=== PATIENT | female | born 1995 | race Caucasian/White ===

== ENCOUNTER 2023-05-18 10:32 | Emergency (ER) | payer BC ==
[~2023-05-18] VITALS: Ht 170.2 cm; Wt 140.9 kg
[~2023-05-18 10:32] MED LIST: CEFTIN 250250 MG/TAB PO; PREDNISONE20 MG PO; PROAIR HFA0.09 MG/AC IH; XOPENEX HF0.045 MG/A IH; ZITHROMAX 250M250 MG PO
[2023-05-18 10:54] LABS: HEMATOCRIT 42.1 % (37.0-47.0); HEMOGLOBIN 13.7 g/dl (12.5-16.0); MEAN CELL VOLUME 86 fl (80.0-100.0); MEAN CORPUSCULAR HEMOGLOBIN 28 pg (27-31); MEAN CORPUSCULAR HGB CONC 33 g/dl (33.0-37.0); MEAN PLATELET VOLUME 9.4 fl (7.4-10.4); PLATELET COUNT 270 K/mm3 (130-400); RED BLOOD COUNT 4.92 M/mm3 (4.10-5.30); REDCELL DISTRIBUTION WIDTH-CV 12.9 % (11.5-14.5)
[2023-05-18 11:09] LABS: ALBUMIN 3.3 gm/dL (3.5-5.0); BILIRUBIN,TOTAL 0.5 mg/dL (0.2-1.2); CALCIUM 9.3 mg/dL (8.4-10.2); CREATININE, serum 0.8 mg/dL (0.57-1.11); POTASSIUM 3.8 mmol/L (3.5-4.5); TOTAL PROTEIN 7.4 gm/dL (6.2-8.1)
[2023-05-18 11:16] LABS: BAND 3 % (0-10); NEUTROPHILS 88 % (42.0-75.2)
[2023-05-18 11:17] LABS: HYPOCHROMIA 1+; PLATELET ESTIMATE NORMAL (NORMAL)
[2023-05-18 11:18] LABS: LYMPHOCYTE 6 % (20.0-51.0)
[2023-05-18 12:34] LABS: COLLECTION METHOD CLEAN CATCH
[2023-05-18 12:43] LABS: MUCOUS Present (NOT PRESENT); SQUAMOUS EPITHELIAL 0-2 /hpf (0-10); URINE BACTERIA None Seen /hpf (NONE SEEN); URINE RBC 0-2 /hpf (0-2)
[2023-05-18 12:47] LABS: PH 6.5 (5.0-8.5); URINE APPEARANCE Clear (CLEAR/HAZY); URINE BLOOD Negative (NEGATIVE); URINE COLOR Yellow (YELLOW); URINE GLUCOSE Negative (NEGATIVE); URINE KETONE Negative (NEGATIVE); URINE NITRATE Negative (NEGATIVE); URINE PROTEIN(semi-quant) TRACE (NEGATIVE); URINE UROBILINOGEN 0.2 E.U/dL (0.2-1.0)
[2023-05-18 13:32] VITALS: BP 105/62; PULSE 98; TEMP 99
== END 2023-05-18 13:30 | disposition home or self-care (01) ==
LOC: COL.ER 10:32
PROVIDERS: Physician Assistant
DX: R10.32 Left lower quadrant pain (principal); R10.31 Right lower quadrant pain; D72.829 Elevated white blood cell count, unspecified; R11.0 Nausea; R00.0 Tachycardia, unspecified; Z91.040 Latex allergy status
CPT/HCPCS: J1885; J2405; J7030; Q9967